=== PATIENT | male | born 1980 | race Caucasian/White ===

== ENCOUNTER 2020-06-22 08:54 | Outpatient (CLI) | payer OTHER, SELFPAY ==
[2020-06-22 09:17] LABS: Basophils Percent Auto 0.3 % (0.2-1.2); Eosinophils Absolute Auto 0.2 K/mm3 (0-0.3); Eosinophils Percent Auto 2.5 % (0-4.4); Hematocrit 48.2 % (42.0-52.0); Hemoglobin 15.9 g/dL (14.0-18.0); Immature Granulocyte Absolute 0.03 K/mm3 (0.00-0.031); Immature Granulocyte Percent A 0.3 % (0-0.5); Lymphocytes Absolute Auto 2.74 K/mm3 (0.9-3.2); Lymphocytes Percent Auto 29.4 % (18.3-44.2); Mean Corpuscular Hemoglobin 29.6 pg (26-34); Mean Corpuscular Volume 89.6 fl (80-100); Mean Platelet Volume 8.8 fl (7.4-10.4); Monocytes Absolute Auto 1.2 K/mm3 (0.1-0.6); Monocytes Percent Auto 12.6 % (2.6-8.5); Neutrophils Absolute Auto 5.1 K/mm3 (1.3-6.7); Neutrophils Percent Auto 54.9 % (45.5-73.1); Platelet Count Result 231 k/mm3 (150-375); Red Blood Count 5.38 M/mm3 (4.6-6.20); Red Cell Distribution Width 12.8 % (11.5-14.5); White Blood Count 9.3 K/mm3 (4.5-10.0)
[2020-06-22 09:19] LABS: Appearance Urine Clear (Clear); Bilirubin Urine Negative (Negative); Color Urine Yellow (Yellow); Glucose Urine UA Negative (Negative); Ketones Urine Negative (Negative); Leukocyte Esterase Ur Negative LEU/UL (Negative); Nitrate Urine Negative (Negative); Protein Urine Negative (Negative); Specific Grav Ur 1.025 (1.001-1.035); Urobilinogen Urine 0.2 mg/dL (<2.0); pH Urine 6.5 (5.0-9.0)
[2020-06-22 09:30] LABS: Alanine Aminotransferase 44 U/L (4-50); Albumin Level 3.9 g/dL (3.5-5.1); Alkaline Phosphatase 76 U/L (38-126); Anion Gap 11.4 mmol/L (7-16); Aspartate Amino Transferase 28 U/L (17-59); Bilirubin,Total 0.4 mg/dL (0.2-1.3); Blood Urea Nitrogen 16 mg/dL (9-20); Calcium 8.8 mg/dL (8.4-10.2); Carbon Dioxide 26 mmol/L (22-30); Chloride 107 mmol/L (98-107); Cholesterol 146 mg/dL (0-200); Estimated Glomerular Filt Rate > 60; Glucose 98 mg/dL (75-110); HDL Direct 30 mg/dL; Potassium 4.4 mmol/L (3.4-5.0); Sodium 140 mmol/L (137-145); Triglycerides 153 mg/dL (<150); Uric Acid 7.6 mg/dL (3.5-8.5)
[2020-06-22 09:32] LABS: Hemoglobin A1C 5.6 % (<5.7)
[2020-06-22 09:33] LABS: Mucus Urine Rare /lpf; RBC Urine 0-2 /hpf (0-2); WBC Urine 0-3 /hpf
[2020-06-22 09:43] LABS: Add Urine Microscopic? YES; Blood Urine Trace-Intact (Negative)
[2020-06-22 09:44] LABS: LDL Cholesterol Direct 81 mg/dL
[2020-06-22 11:31] LABS: Hepatitis C Virus Antibody Negative (Negative)
== END 2020-06-22 08:55 | disposition home or self-care (01) ==
LOC: ANHLAB 08:57
PROVIDERS: PCP Nurse Practitioner Family; Visit Provider Registered Nurse
DX: Z11.59 Encounter for screening for other viral diseases (principal)
CPT/HCPCS: 36415; 80053; 80061; 81001; 83036; 84443; 84550; 85025; 86803

== ENCOUNTER 2020-06-27 08:51 | Emergency (ER) | payer OTHER, SELFPAY ==
--- NOTE | 2020-06-27 09:03 | ED.GENADULT ---
HPI - General Adult General Chief complaint: Extremity Injury, Upper Stated complaint: left shoulder pain Time Seen by Provider: 06/27/20 09:05 Source: patient Mode of arrival: ambulatory Limitations: no limitations History of Present Illness HPI narrative: 40-year-old male patient presents to the [facility] with complaints of right shoulder pain for the past 3 days. Patient denies any specific injury to the shoulder that he can remember. 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 Patient states he noticed on Wednesday that after work when he went to go relax started having some pain to the right shoulder area that radiates to his neck. Patient states he has been trying to take [id number] ibuprofen for his symptoms. Denies any numbness or tingling down the arm. Patient states he did start using a heating pad yesterday. Related Data Home Medications Medication Instructions Recorded Confirmed furosemide [Lasix] 40 mg PO DAILY 06/27/20 06/27/20 Allergies Allergy/AdvReac Type Severity Reaction Status Date / Time No Known Allergies Allergy Verified 06/27/20 09:14 Review of Systems Review of Systems: Narrative: CONSTITUTIONAL: Denies fever, chills, or sweats. EYES: Denies visual changes, redness, or discharge. ENT: Denies rhinorrhea, congestion, sore throat, or otalgia. CARDIOVASCULAR: Denies chest pain, palpitations, or edema. RESPIRATORY: Denies cough or dyspnea. GASTROINTESTINAL: Denies abdominal pain, nausea, vomiting, or diarrhea. GENITOURINARY: Denies dysuria or hematuria. SKIN: Denies rash or itching. MUSCULOSKELETAL: Denies back pain, joint pain, or myalgia. Positive right shoulder pain x3 days NEUROLOGIC: Denies headache, numbness, or weakness. PSYCHIATRIC: Denies anxiety or depression. [facility] Past Medical History Medical History Obese Social History Social History Smoking status: Current every day smoker Gender identity (if verbalized by the patient): Male Comments At the time of my signature I agree with nursing past medical history, surgical, social, and family history. There is no relevant family history pertinent to the presenting complaint. Exam Narrative: Exam Narrative: GENERAL: Well-appearing, well-nourished, and in no acute distress. HEAD: Normocephalic, atraumatic. EYES: PERRLA and EOMI. ENT: Nares clear, no rhinorrhea or epistaxis. Mucous membranes moist. NECK: Supple, no lymphadenopathy. No surface trauma, no soft tissue or muscle tenderness or spasm noted. Trachea midline. No subq emphysema or crepitus. No brandi tenderness, step-offs or deformity to firm Palpation at posterior midline. FROM without limitation or pain, normal flexion, extension,Lateral bending, rotation, and axial load. Patient does complain of pain and pulling to the right scapular area with movement of the neck. CHEST: Clear to auscultation. No respiratory distress. HEART: Regular rate and rhythm. No murmur heard. Normal peripheral pulses. ABDOMEN: Soft, nontender, nondistended, normal active bowel sounds. EXTREMITIES: The R shoulder is without obvious asymmetry or deformity when compared to the L shoulder. No surface trauma, ecchymosis, crepitus. No bony deformity or prominence of the humeral head No erythema, warmth, swelling. no tenderness to palpation to clavicle, A to C joint, acromion, or humeral head. Patient does have an obvious spasm noted on palpation to the posterior shoulder right above the right scapula. No tenderness to palpation of the bicipital groove or soft tissues. No tenderness to palpation of the muscles of the sterncleidomastoid, pectorals, biceps/triceps, deltoid, trapezius, rhomboid, latissimus dorsi, rotator cuff. No pain or limitation with active or passive abduction/adduction, internal/external rotation, flexion/extension. Negative
[2020-06-27 09:04] VITALS: BP 125/80; PULSE 75; RESP 18; TEMP 36.4; O2SAT 99
== END 2020-06-27 09:21 | disposition home or self-care (01) ==
PROVIDERS: Emergency Provider Nurse Practitioner Family; PCP Registered Nurse
DX: M62.838 Other muscle spasm (principal)
CPT/HCPCS: 99213; G0463

== ENCOUNTER 2021-04-09 15:53 | Emergency (ER) | payer OTHER, SELFPAY ==
[2021-04-09 16:01] VITALS: BP 166/88; PULSE 81; RESP 20; TEMP 36.4; O2SAT 97
--- NOTE | 2021-04-09 16:11 | ED.URI ---
HPI - URI/Sore Throat General Chief Complaint: Upper Respiratory Infection Stated Complaint: cough Time Seen by Provider: 04/09/21 16:10 Source: patient, family and RN notes reviewed Mode of arrival: ambulatory Limitations: no limitations History of Present Illness HPI Narrative: 40-year-old male who presents to [facility] with complaint of cough, some sore throat and nasal drainage for the past 4 days. Patient states that cough is keeping him awake at night, denies any known fevers, chills or sweats. Patient states that he has noted some wheezing but denies any acute shortness of breath at rest or with exertion.He verbalizes that his throat is only noted to be sore when he is coughing, admits to some nasal congestion and drainage, denies any headache or sinus pressure or any ear pain. Patient does admit to some history of seasonal allergies and tobacco abuse of 1 pack daily of cigarettes for many years. Patient is able to speak in full sentences states cough is worse with exertion and when he lays down. MD elicited complaint: cough, sore throat and nasal congestion Pertinent past history: seasonal allergies and other (tobacco abuse) Onset (ago): day(s) (4 days since Wednesday) Consistency: progressively worsening Severity: moderate Description of mucous: clear Able to tolerate fluids by mouth: Yes Exacerbating factors: exertion, speaking and supine positioning Associated symptoms: rhinorrhea, nasal congestion and cough Treatments prior to arrival: other (cough drops, Robitussin cough syrup) Related Data Allergies Allergy/AdvReac Type Severity Reaction Status Date / Time No Known Allergies Allergy Verified 06/27/20 09:14 Review of Systems Review of Systems: Narrative: CONSTITUTIONAL: Denies fever, chills, or sweats. EYES: Denies visual changes, redness, or discharge. ENT: positive rhinorrhea, congestion, sore throat only with cough, no otalgia. CARDIOVASCULAR: Denies chest pain, palpitations, or edema. RESPIRATORY: Positive for cough and some feelings of wheezing denies acute episodes of dyspnea. GASTROINTESTINAL: Denies abdominal pain, nausea, vomiting, or diarrhea. GENITOURINARY: Denies dysuria or hematuria. SKIN: Denies rash or itching. MUSCULOSKELETAL: Denies back pain, joint pain, or myalgia. NEUROLOGIC: Denies headache, numbness, or weakness. PSYCHIATRIC: Denies anxiety or depression. All systems reviewed & are unremarkable except as noted in HPI and below PMFSH Past Medical History Medical History (Updated 04/12/21 @ 09:47 by Dianna Grijalva NP) Back pain Fracture of left ankle Obese Seasonal allergies Strep pharyngitis Tobacco abuse Surgical History Surgical History (Updated 04/12/21 @ 09:46 by Dianna Grijalva NP) No pertinent past surgical history Family History Family History (Updated 04/12/21 @ 09:28 by Dianna Grijalva NP) Other No pertinent family history in first degree relatives Social History Social History (Updated 04/12/21 @ 09:20 by Dianna Grijalva NP) Smoking packs per day: 1 Smoking cigarettes per day: 20.0 Smoking status: Current every day smoker Alcohol intake: unknown Substance use: never Living arrangements: with family Gender identity (if verbalized by the patient): Male Comments At time of signature, agree with nursing past medical, surgical, social and family history. There is no relevant family history pertinent to the presenting complaint Exam Narrative: Exam Narrative: GENERAL: Well-appearing, well-nourished, and in no acute distress. HEAD: Normocephalic, atraumatic. EYES: PERRLA and EOM ENT: Nares mildly red with clear rhinorrhea no epistaxis. Mucous membranes moist.TM's normal with good light reflex, throat pink with no lesions or exudates, tonsils not enlarged, some post nasal drainage in back of throat. NECK: Supple. no lymphadenopathy CHEST: Coarse breath sounds on auscultation. No respiratory distress.Acute harsh cough occasional states productive
== END 2021-04-09 16:43 | disposition home or self-care (01) ==
PROVIDERS: Emergency Provider Registered Nurse; PCP Registered Nurse
DX: J06.9 Acute upper respiratory infection, unspecified (principal); F17.210 Nicotine dependence, cigarettes, uncomplicated
CPT/HCPCS: 99213; G0463

== ENCOUNTER 2021-07-09 14:15 | Emergency (ER) | payer OTHER, SELFPAY ==
[2021-07-09 14:28] VITALS: BP 135/89; PULSE 76; RESP 16; TEMP 36.3; O2SAT 97
--- NOTE | 2021-07-09 15:03 | ED.NAVMDI ---
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 Patient states he has a couple day history of vomiting x2 today associated with diarrhea x8-10/day. Symptoms are mild unrelieved with Pepto-Bismol and preceded by nasal congestion and rare cough. Last diarrhea was earlier today, and he last vomited yesterday. No fever, blood, bile, travel; symptoms are mild, worse with eating and he requests days off. Related Data Home Medications Medication Instructions Recorded Confirmed hydrochlorothiazide 12.5 mg PO DAILY 07/09/21 07/09/21 Allergies Allergy/AdvReac Type Severity Reaction Status Date / Time No Known Allergies Allergy Verified 07/09/21 14:37 Review of Systems Review of Systems: General/Constitutional: No weight loss,fever Eyes: N0: Redness,discharge Ears/Nose/Throat: No: Epistaxis,ear discharge Respiratory: Denies: Hemoptysis Gastrointestinal: No Vomiting, Bleeding-rectal Skin: No Lumps, eruption Neurologic: No Focal Weakness,Sz Hematologic: Denies: Petechiae/Purpura Psychiatric: No: Suicida ideationl All Other Systems: Reviewed and Negative [facility] Past Medical History Medical History (Updated 07/09/21 @ 15:36 by James Smith MD) Back pain Fracture of left ankle Obese Seasonal allergies Strep pharyngitis Tobacco abuse Surgical History Surgical History (Updated 04/12/21 @ 09:46 by Dianna Grijalva NP) No pertinent past surgical history Family History Family History (Updated 04/12/21 @ 09:28 by Dianna Grijalva NP) Other No pertinent family history in first degree relatives Social History Social History (Updated 04/12/21 @ 09:20 by Dianna Grijalva NP) Smoking packs per day: 1 Smoking cigarettes per day: 20.0 Smoking status: Current every day smoker Alcohol intake: unknown Substance use: never Gender identity (if verbalized by the patient): Male Comments At time of signature, agree with nursing past medical, surgical, social and family history. There is no relevant family history pertinent to the presenting complaint Exam Narrative: General Appearance: Well appearing, No distress EYE: PERRLA, Conjunctiva clear Ears: External ear normal Nose: Normal nose Mouth/Throat: Normal appearing, Normal lips Neck: Supple Respiratory: Airway patent, No respiratory distress Cardiovascular: RRR Abdomen: Soft, Non-tender, No massess, No organomegaly (no rebound/ surgical signs), Hyperactive bowel sounds Musculoskeletal: Full ROM Skin: Warm, Dry, trace dependent edema Neurological: A&O x3, CN II-X intact Psychiatric: Normal mood, Normal affect Course Vital Signs Vital signs: Vital Signs Temperature 97.4 F L 07/09/21 14:28 Pulse Rate 76 07/09/21 14:28 Respiratory Rate 16 07/09/21 14:28 Blood Pressure 135/89 07/09/21 14:28 Pulse Oximetry 97 07/09/21 14:28 Temperature 97.4 F L 07/09/21 14:28 Pulse Rate 76 07/09/21 14:28 Respiratory Rate 16 07/09/21 14:28 Blood Pressure 135/89 07/09/21 14:28 Pulse Oximetry 97 07/09/21 14:28 MDM - Nausea/Vomiting/Diarrhea Lab Data Labs: Lab Results 07/09/21 Range/Units Unknown POC SARS CoV-2 Ag Positive (Negative) Discharge Plan Discharge Clinical Impression: Dependent edema Diarrhea Qualifiers: Diarrhea type: unspecified type Qualified Code(s): R19.7 - Diarrhea, unspecified Patient Disposition: Home, Self-Care Condition: Stable Instructions: Gastroenteritis (ED) Prescriptions: New diphenoxylate-atropine [Lomotil] 2.5-0.025 mg tablet 1 tablet PO DAILY PRN (Reason: diarrhea) Qty: 5 RF: 0 No Action hydrochlorothiazide 12.5 mg Capsule
== END 2021-07-09 15:18 | disposition home or self-care (01) ==
PROVIDERS: Emergency Provider Emergency Medicine; PCP Registered Nurse
DX: R60.9 Edema, unspecified (principal); R19.7 Diarrhea, unspecified; Z20.822 Contact with and (suspected) exposure to COVID-19; F17.210 Nicotine dependence, cigarettes, uncomplicated; E66.9 Obesity, unspecified
CPT/HCPCS: 87426; 99213; C9803; G0463

== ENCOUNTER 2021-11-25 10:21 | Emergency (ER) | payer OTHER, SELFPAY ==
--- NOTE | ~2021-11-25 | XR_ITS ---
EXAMINATION: XR shoulder RT min 2V DATE: 11/25/2021 11:12 INDICATION: Right shoulder pain post fall TECHNIQUE: AP internally and externally rotated, AP oblique externally rotated and axillary views of the right shoulder were obtained. COMPARISON: None FINDINGS: Normal alignment at the right shoulder. No fracture. Glenohumeral and acromioclavicular joint spaces are suboptimally profiled but appear relatively preserved. Soft tissues are unremarkable. IMPRESSION: No acute osseous abnormality to right shoulder. Reviewed, dictated and finalized at location B. [employer]
[2021-11-25 10:31] VITALS: BP 138/76; PULSE 84; RESP 18; TEMP 36.4; O2SAT 98
--- NOTE | 2021-11-25 10:46 | ED.GENADULT ---
HPI - General Adult General Chief complaint: Extremity Problem,Nontraumatic Stated complaint: Shoulder Pain Time Seen by Provider: 11/25/21 10:46 Source: patient, RN notes reviewed and old records reviewed Mode of arrival: ambulatory Limitations: no limitations History of Present Illness HPI narrative: 41-year-old male who presents to [facility] with complaints of pain to his anterior right shoulder. Patient states that he fell on outstretched right arm on and then starting having pain to his right anterior shoulder the next day. Patient has pain with movement to his right shoulder and some pain in his upper arm. Patient has strong pulses to his right arm denies any tingling or numbness, strong equal hand dramatic director. Patient does have full range of motion of the right shoulder but with discomfort and stated decrease in strength. Related Data Allergies Allergy/AdvReac Type Severity Reaction Status Date / Time No Known Allergies Allergy Verified 11/25/21 10:46 Review of Systems Review of Systems: CONSTITUTIONAL: Denies fever, chills, or sweats. EYES: Denies visual changes, redness, or discharge. ENT: Denies rhinorrhea, congestion, sore throat, or otalgia. CARDIOVASCULAR: Denies chest pain, palpitations, or edema. RESPIRATORY: Denies cough or dyspnea. GASTROINTESTINAL: Denies abdominal pain, nausea, vomiting, or diarrhea. GENITOURINARY: Denies dysuria or hematuria. SKIN: Denies rash or itching. MUSCULOSKELETAL: Denies back pain,positive for right shoulder joint pain, or myalgia. NEUROLOGIC: Denies headache, numbness, or weakness. PSYCHIATRIC: Denies anxiety or depression. All systems reviewed & are unremarkable except as noted in HPI and below PMFSH Past Medical History Medical History Back pain Fracture of left ankle Obese Seasonal allergies Strep pharyngitis Tobacco abuse Surgical History Surgical History No pertinent past surgical history Family History Family History (Updated 11/25/21 @ 11:28 by Dianna Grijalva NP) Father Diabetes mellitus Hypertension Lung cancer Arthritis Mother Hypertension Arthritis Sibling Hypertension Arthritis Other No pertinent family history in first degree relatives Social History Social History Smoking packs per day: 1 Smoking cigarettes per day: 20.0 Smoking status: Current every day smoker Alcohol intake: unknown Substance use: never Gender identity (if verbalized by the patient): Male Comments At time of signature, agree with nursing past medical, surgical, social and family history. There is no relevant family history pertinent to the presenting complaint Exam Narrative: GENERAL: Well-appearing, well-nourished,obese and in no acute distress. HEAD: Normocephalic, atraumatic. EYES: PERRLA and EOMI. ENT: Nares clear, no rhinorrhea or epistaxis. Mucous membranes moist.TMs normal throat pink with no lesions or exudates, no tonsil enlargement NECK: Supple. no lymphadenopathy CHEST: Clear to auscultation. No respiratory distress.SAO2 98% on room air HEART: Regular rate and rhythm. No murmur heard. Normal peripheral pulses. ABDOMEN: Soft, nontender, nondistended, normal active bowel sounds. EXTREMITIES: Normal range of motion. No edema. Pain to right shoulder with movement to anterior aspect to radiates to right upper arm, has good strong hand dramatic director bilaterally, strong pulses to right arm denies any tingling or numbness to right arm or hand SKIN: Warm, dry, no rash. NEURO: No focal deficits. Alert and oriented x3. Course Course Level of Care: Express Care Visit Vital Signs Vital signs: Vital Signs Temperature 36.4 C L 11/25/21 10:31 Pulse Rate 84 11/25/21 10:31 Respiratory Rate 18 11/25/21 10:31 Blood Pressure 138/76 11/25/21 10:31 Pulse Oximetry 98
== END 2021-11-25 11:51 | disposition home or self-care (01) ==
PROVIDERS: Emergency Provider Registered Nurse; PCP Registered Nurse
DX: S46.911A Strain of unspecified muscle, fascia and tendon at shoulder and upper arm level, right arm, initial encounter (principal); W19.XXXA Unspecified fall, initial encounter; E66.9 Obesity, unspecified; Z68.42 Body mass index [BMI] 45.0-49.9, adult; F17.210 Nicotine dependence, cigarettes, uncomplicated
CPT/HCPCS: 73030; 99213; G0463

== ENCOUNTER 2022-05-27 08:18 | Emergency (ER) | payer OTHER, SELFPAY ==
[2022-05-27 08:56] VITALS: BP 150/89; PULSE 65; RESP 16; TEMP 36.5; O2SAT 98
--- NOTE | 2022-05-27 09:12 | ED.BACK ---
HPI - Back Pain/Injury General Chief Complaint: Back Pain/Injury Stated Complaint: lower back pain Time Seen by Provider: 05/27/22 09:12 Source: patient, RN notes reviewed and old records reviewed Mode of arrival: ambulatory Limitations: no limitations History of Present Illness HPI Narrative: 42-year-old male who presents to [facility] with complaints of lower back pain non radiating to legs which started yesterday morning and has progressively increased in intensity since then with no known injury. Patient reports that he has no numbness or tingling in his legs or feet, reports no difficulty passing his urine or stool and has no saddle paraesthesia. Patient reports that he has had regular x-rays of his back but has never had any CT or MRI evaluation, has never had any epidural steroid injections. MD elicited complaint: back pain Pertinent past history: prior back pain Similar Symptoms Previously: Yes Radiation: none Treatments prior to arrival: NSAIDS Work related injury: No Related Data Allergies Allergy/AdvReac Type Severity Reaction Status Date / Time No Known Allergies Allergy Verified 05/27/22 09:05 Review of Systems Review of Systems: CONSTITUTIONAL: Denies fever, chills, or sweats. EYES: Denies visual changes, redness, or discharge. ENT: Denies rhinorrhea, congestion, sore throat, or otalgia. CARDIOVASCULAR: Denies chest pain, palpitations, or edema. RESPIRATORY: Denies cough or dyspnea. GASTROINTESTINAL: Denies abdominal pain, nausea, vomiting, or diarrhea. GENITOURINARY: Denies dysuria or hematuria. SKIN: Denies rash or itching. MUSCULOSKELETAL: Positive for lower back pain, joint pain, or myalgia. NEUROLOGIC: Denies headache, numbness, or weakness. PSYCHIATRIC: Denies anxiety or depression. [facility] Past Medical History Medical History Back pain Fracture of left ankle Obese Seasonal allergies Strep pharyngitis Tobacco abuse Surgical History Surgical History No pertinent past surgical history Family History Family History Father Diabetes mellitus Hypertension Lung cancer Arthritis Mother Hypertension Arthritis Sibling Hypertension Arthritis Other No pertinent family history in first degree relatives Social History Social History Smoking packs per day: 1 Smoking cigarettes per day: 20.0 Smoking status: Current every day smoker Alcohol intake: unknown Substance use: never Gender identity (if verbalized by the patient): Male Comments At time of signature, agree with nursing past medical, surgical, social and family history. There is no relevant family history pertinent to the presenting complaint Exam Narrative: GENERAL: Well-appearing, well-nourished, morbidly obese and in no acute distress. HEAD: Normocephalic, atraumatic. EYES: PERRLA and EOMI. ENT: Nares clear, no rhinorrhea or epistaxis. Mucous membranes moist.TM's normal with good light reflex, throat pink with no lesions or exudates or tonsil swelling. NECK: Supple.no lymphadenopathy CHEST: Decreased breath sounds on auscultation. No respiratory distress.SAO2 98% on room air HEART: Regular rate and rhythm. No murmur heard. Normal peripheral pulses. ABDOMEN: Soft, nontender, nondistended, normal active bowel sounds. EXTREMITIES: Normal range of motion. Trace pedal edema noted. Patient has lower lumbar back pain which is nonradiating to buttocks or legs, denies any tingling or numbness in lower extremities.pain is aggravated by forward and backward flexion and aggravated with lifting, no saddle paraesthesia, no acute pain on palpation of SI joints. SKIN: Warm, dry, no rash. NEURO: No focal deficits. Alert and oriented x3. Course Course Level of Care: Express Care Visit Vital Signs Vital signs:
== END 2022-05-27 09:40 | disposition home or self-care (01) ==
PROVIDERS: Emergency Provider Registered Nurse; PCP Registered Nurse
DX: M54.50 Low back pain, unspecified (principal); F17.210 Nicotine dependence, cigarettes, uncomplicated
CPT/HCPCS: 99213; G0463

== ENCOUNTER 2022-09-16 08:46 | Emergency (ER) | payer OTHER, SELFPAY ==
[2022-09-16 08:58] VITALS: BP 130/88; PULSE 69; RESP 16; TEMP 36.9; O2SAT 98
--- NOTE | 2022-09-16 09:18 | ED.LOWEXIN ---
HPI - Extremity Injury (Lower) General Chief Complaint: Extremity Problem,Nontraumatic Stated Complaint: Right Shoulder Pain Time Seen by Provider: 09/16/22 09:05 Source: patient Mode of arrival: ambulatory Limitations: no limitations History of Present Illness HPI Narrative: Mr. Chavez is a 42-year-old male patient presenting to the clinic today with complaint right shoulder pain that is been ongoing for couple weeks. He reports he has seen his PCP and was given prescription for naproxen but states that this is not helping. He reports the pain is worse when he is raising his arm above his head or lifting. He denies any known injury. 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 Patient denies any fever, chills, rash, headache, visual changes, dizziness, cough, runny nose, sore throat, shortness of breath, chest pain, palpitations, nausea, vomiting, diarrhea, constipation, abdominal pain, or any urinary issues. [facility] Past Medical History Medical History Back pain Fracture of left ankle Obese Seasonal allergies Strep pharyngitis Tobacco abuse Surgical History Surgical History No pertinent past surgical history Family History Family History Father Diabetes mellitus Hypertension Lung cancer Arthritis Mother Hypertension Arthritis Sibling Hypertension Arthritis Other No pertinent family history in first degree relatives Social History Social History Smoking packs per day: 1 Smoking cigarettes per day: 20.0 Smoking status: Current every day smoker Alcohol intake: unknown Substance use: never Gender identity (if verbalized by the patient): Male Comments At the time of my signature, I reviewed and agree with the nursing past medical, surgical, social, and family history. There is no relevant family history pertinent to the patient complaint. Exam Narrative: General: Well-developed, well nourished, in no apparent distress Head: Normocephalic, atraumatic. Cardio: Regular rate and rhythm, s1 and s2 normal, no murmur appreciated. Resp: Clear to auscultation bilaterally, no rhonchi, rales, wheezing or rubs. Musculoskeletal: No deformity, tender to palpation over the lateral shoulder /proximal humerus, pain with full can/ empty can testing however there is no laxity in the tendon, pain with raising the arm above head, positive Ortiz,grossly normal range of motion, muscle strength strong and equal, peripheral pulse strong, no edema, no cyanosis, normal gait and station Course Course Emergency Course: Portions of this record may have been created with voice recognition software. Level of Care: Express Care Visit Vital Signs Vital signs: Vital Signs Temperature 36.9 C 09/16/22 08:58 Pulse Rate 69 09/16/22 08:58 Respiratory Rate 16 09/16/22 08:58 Blood Pressure 130/88 09/16/22 08:58 Pulse Oximetry 98 09/16/22 08:58 Oxygen Delivery Room Air 09/16/22 08:58 Temperature 36.9 C 09/16/22 08:58 Pulse Rate 69 09/16/22 08:58 Respiratory Rate 16 09/16/22 08:58 Blood Pressure 130/88 09/16/22 08:58 Pulse Oximetry 98 09/16/22 08:58 Oxygen Delivery Room Air 09/16/22 08:58 Vital signs reviewed MDM - Extremity Injury (Lower) MDM Narrative Medical decision making narrative: At the time of visit patient is resting comfortably on the exam table.
== END 2022-09-16 09:23 | disposition home or self-care (01) ==
PROVIDERS: Emergency Provider Nurse Practitioner Family; PCP Registered Nurse
DX: M77.8 Other enthesopathies, not elsewhere classified (principal); F17.210 Nicotine dependence, cigarettes, uncomplicated
CPT/HCPCS: 99213; G0463

== ENCOUNTER 2022-12-26 09:15 | Emergency (ER) | payer OTHER, SELFPAY ==
[2022-12-26 09:38] VITALS: BP 135/91; PULSE 80; RESP 22; O2SAT 99
--- NOTE | 2022-12-26 09:38 | ED.LOWEXIN ---
HPI - Extremity Injury (Lower) General Chief Complaint: Extremity Problem,Nontraumatic Stated Complaint: Right Ankle Pain Time Seen by Provider: 12/26/22 09:46 Source: patient Mode of arrival: ambulatory Limitations: no limitations History of Present Illness HPI Narrative: 42 y/o male with hx HTN presented for c/o right lower leg swelling and redness worsening over the past 2 days. Reports tenderness to the red areas. Also with dried blister to the back of the lower leg. States he was treated for cellulitis at outside ER on 12/07/22. Reports moderate improvement in appearance of the redness and swelling until these symptoms reappeared. Denies n/v/d/f/c. Denies calf pain, numbness, tingling or weakness of the extremity. Related Data Home Medications Medication Instructions Recorded Confirmed hydrochlorothiazide 25 mg tablet 25 mg PO DAILY 09/16/22 12/26/22 Allergies Allergy/AdvReac Type Severity Reaction Status Date / Time No Known Allergies Allergy Verified 12/26/22 09:25 Review of Systems Review of Systems: CONSTITUTIONAL: Denies body aches, fever, chills EYES: Denies visual changes ENT: Denies rhinorrhea, congestion CARDIOVASCULAR: Denies chest pain, palpitations, or edema. RESPIRATORY: Denies cough or dyspnea. GASTROINTESTINAL: Denies abdominal pain, nausea, vomiting, or diarrhea. SKIN: per HPI MUSCULOSKELETAL: Denies back pain, joint pain, or myalgia. NEUROLOGIC: Denies headache, numbness, tingling, or weakness. All systems reviewed & are unremarkable except as noted in HPI and below PMFSH Past Medical History Medical History Back pain Fracture of left ankle Hypertension Obese Seasonal allergies Strep pharyngitis Tobacco abuse Surgical History Surgical History No pertinent past surgical history Family History Family History Father Diabetes mellitus Hypertension Lung cancer Arthritis Mother Hypertension Arthritis Sibling Hypertension Arthritis Other No pertinent family history in first degree relatives Social History Social History Smoking packs per day: 1 Smoking cigarettes per day: 20.0 Smoking status: Current every day smoker Alcohol intake: unknown Substance use: never Living arrangements: with family Gender identity (if verbalized by the patient): Male Comments At time of signature, I have reviewed and agree with nursing past medical, surgical, social and family history unless otherwise noted. Please see nursing chart for further information. There is no relevant family history pertinent to the presenting complaint Exam Narrative: GENERAL: Well-appearing, obese CHEST: Speaks in full sentences. No respiratory distress. HEART: Regular rate and rhythm. Normal and equal peripheral pulses. EXTREMITIES: Right lower leg with 4+ edema, and large amount of tender erythema to approx 70% lower leg, not circumferential, appearance c/w cellulitis; right posterior lower leg with approx 2cm diameter dried scabbed lesion without active drainage; RLE has normal strength and sensation, normal range of motion. pulse weak palpable and equal bilaterally, skin warm, dry, pink. Capillary refill less than 3 seconds. No calf pain illicited with dorsiflexion. SKIN: Warm, dry, no rash. NEURO: Alert and oriented x3. PSYCH: Normal mood and affect Course Course Emergency Course: Patient is aware of diagnosis, understands and agrees to treatment plan. Anticipatory guidance given. Portions of this record may have been created with voice recognition software Level of Care: Express Care Visit Vital Signs Vital signs: Vital Signs Pulse Rate 80 12/26/22 09:38 Respiratory Rate 22 H 12/26/22 09:38 Blood Pressure 135/91 H 12/26/22 09:38 Pulse
== END 2022-12-26 10:05 | disposition short-term general hospital (02) ==
PROVIDERS: Emergency Provider Nurse Practitioner Family
DX: L03.115 Cellulitis of right lower limb (principal); F17.210 Nicotine dependence, cigarettes, uncomplicated; I10 Essential (primary) hypertension; E66.9 Obesity, unspecified; Z68.43 Body mass index [BMI] 50.0-59.9, adult
CPT/HCPCS: 99212; G0463

== ENCOUNTER 2023-01-13 11:37 | Emergency (ER) | payer OTHER, SELFPAY ==
[2023-01-13 11:52] VITALS: BP 147/84; PULSE 92; RESP 20; TEMP 36.6; O2SAT 98
--- NOTE | 2023-01-13 12:22 | ED.URI ---
HPI - URI/Sore Throat General Chief Complaint: Upper Respiratory Infection Stated Complaint: URI Time Seen by Provider: 01/13/23 12:22 Source: patient and RN notes reviewed Mode of arrival: ambulatory Limitations: no limitations History of Present Illness HPI Narrative: 42-year-old male presented for complaint of cough and sinus congestion over the last few weeks. Endorses a headache and chest tightness with cough, cough is productive of clear sputum. Reports shortness of breath with exertion at times. He has history of asthma. Endorses history of hypertension and smokes 1 pack per day. He is not taking anything for symptoms. He endorses child also has similar symptoms. MD elicited complaint: cough Related Data Home Medications Medication Instructions Recorded Confirmed hydrochlorothiazide 25 mg tablet 25 mg PO DAILY 09/16/22 01/13/23 Allergies Allergy/AdvReac Type Severity Reaction Status Date / Time No Known Allergies Allergy Verified 01/13/23 12:06 Review of Systems Review of Systems: ROS per HPI PMFSH Past Medical History Medical History Back pain Fracture of left ankle Hypertension Obese Seasonal allergies Strep pharyngitis Tobacco abuse Surgical History Surgical History No pertinent past surgical history Family History Family History Father Diabetes mellitus Hypertension Lung cancer Arthritis Mother Hypertension Arthritis Sibling Hypertension Arthritis Other No pertinent family history in first degree relatives Social History Social History Smoking packs per day: 1 Smoking cigarettes per day: 20.0 Smoking status: Current every day smoker Alcohol intake: unknown Substance use: never Living arrangements: with family Gender identity (if verbalized by the patient): Male Exam Narrative: GENERAL: mildly Ill-appearing, nontoxic EYES: PERRLA, conjunctivae clear ENT: Mucous membranes moist. TM pearly mantilla with dull light reflex bilaterally; no tragal tenderness. Oropharynx without lesions or exudate, no drooling, no hoarseness, no trismus, uvula midline. CHEST: Clear to auscultation, breath sounds equal. No respiratory distress, speaks in full sentences. HEART: Regular rate and rhythm. No murmur heard. SKIN: Warm, dry, no rash. NEURO: Alert and oriented x3. PSYCH: Normal mood and affect Course Course Emergency Course: Patient is aware of diagnosis, understands and agrees to treatment plan. Anticipatory guidance given. Patient agrees to follow-up as directed and is aware of reasons to seek care at the emergency department. Portions of this record may have been created with voice recognition software Level of Care: Express Care Visit Vital Signs Vital signs: Vital Signs Temperature 97.9 F 01/13/23 11:52 Pulse Rate 92 01/13/23 11:52 Respiratory Rate 20 01/13/23 11:52 Blood Pressure 147/84 H 01/13/23 11:52 Pulse Oximetry 98 01/13/23 11:52 Oxygen Delivery Room Air 01/13/23 11:52 Temperature 97.9 F 01/13/23 11:52 Pulse Rate 92 01/13/23 11:52 Respiratory Rate 20 01/13/23 11:52 Blood Pressure 147/84 H 01/13/23 11:52 Pulse Oximetry 98 01/13/23 11:52 Oxygen Delivery Room Air 01/13/23 11:52 reviewed MDM - URI/Sore Throat MDM Narrative Medical decision making narrative: will send Rx Z-Bladimir as patient's son is positive for strep. Advised supportive measures and signs/symptoms to go to the ER. Pt is appropriate for outpt treatment and f/u. Differential Diagnosis Differential diagnosis: Likely upper respiratory infection, sinusitis, viral infection, bronchitis and pharyngitis Discharge Plan Discharge Clinical Impression: Upper respiratory infection Qualifiers: URI type: unspecifi
== END 2023-01-13 12:48 | disposition home or self-care (01) ==
PROVIDERS: Emergency Provider Nurse Practitioner Family
DX: J06.9 Acute upper respiratory infection, unspecified (principal); I10 Essential (primary) hypertension; E66.9 Obesity, unspecified; Z68.42 Body mass index [BMI] 45.0-49.9, adult; F17.210 Nicotine dependence, cigarettes, uncomplicated
CPT/HCPCS: 99213; G0463

== ENCOUNTER 2023-12-07 10:03 | Outpatient (CLI) | payer OTHER, SELFPAY ==
--- NOTE | ~2023-12-07 | US_ITS ---
Duplex Sonography of the right extremity: Indication: Edema Findings: Sagittal and transverse B-mode images as well as color-flow imaging were performed on the r ight femoral and popliteal veins. B-mode examination was done without and with compression in the tr ansverse plane. There is good visualization of the common femoral, proximal profunda femoral, superf icial femoral, greater saphenous, and popliteal veins. Normal flow was seen on color-flow imaging. N ormal compressibility was demonstrated. Visualized calf veins are also patent. Impression: No evidence of deep vein thrombosis involving the right lower carlene. Reviewed, dictated and finalized at location [facility] Impression: No evidence of deep vein thrombosis involving the right lower carlene.
== END 2023-12-07 10:04 | disposition home or self-care (01) ==
LOC: ANHIMG 10:04
PROVIDERS: Visit Provider Internal Medicine Cardiovascular Disease
DX: R60.0 Localized edema (principal)
CPT/HCPCS: 93971

== ENCOUNTER 2023-12-13 14:22 | Emergency (ER) | payer OTHER, SELFPAY ==
[2023-12-13 14:38] VITALS: BP 121/64; PULSE 78; RESP 18; TEMP 36.6; O2SAT 98
[2023-12-13 14:46] VITALS: PULSE 78; RESP 18; O2SAT 98
--- NOTE | 2023-12-13 15:19 | ED.URI ---
HPI - URI/Sore Throat General Chief Complaint: Upper Respiratory Infection Stated Complaint: Cough Time Seen by Provider: 12/13/23 15:13 Source: patient and RN notes reviewed Mode of arrival: ambulatory Limitations: no limitations History of Present Illness HPI Narrative: Patient presents today complaining of a 1.5-2 month history of cough that is occasionally productive with rhinorrhea. Denies fever, congestion, or any additional symptoms. He has tried [id number] medication without relief. Denies history of asthma or COPD. Smokes 1 pack per day. Related Data Home Medications Medication Instructions Recorded Confirmed hydrochlorothiazide 25 mg tablet 25 mg PO DAILY 09/16/22 12/13/23 Allergies Allergy/AdvReac Type Severity Reaction Status Date / Time No Known Allergies Allergy Verified 11/25/23 09:02 Review of Systems Review of Systems: CONSTITUTIONAL: Denies body aches, fever, chills, or sweats. EYES: Denies visual changes, redness, or discharge. ENT: Denies congestion, sore throat, or otalgia.+ rhinorrhea CARDIOVASCULAR: Denies chest pain, palpitations, or edema. RESPIRATORY: Denies dyspnea.+ cough GASTROINTESTINAL: Denies abdominal pain, nausea, vomiting, or diarrhea. GENITOURINARY: Denies dysuria or hematuria. SKIN: Denies rash, itching, or wounds. MUSCULOSKELETAL: Denies back pain, joint pain, or myalgia. NEUROLOGIC: Denies headache, numbness, tingling, or weakness. PSYCH: Denies depression or anxiety. [facility] Past Medical History Medical History Back pain Fracture of left ankle Hypertension Obese Seasonal allergies Strep pharyngitis Tobacco abuse Surgical History Surgical History No pertinent past surgical history Family History Family History Father Diabetes mellitus Hypertension Lung cancer Arthritis Mother Hypertension Arthritis Sibling Hypertension Arthritis Other No pertinent family history in first degree relatives Social History Social History Smoking packs per day: 1 Smoking cigarettes per day: 20.0 Smoking status: Current every day smoker Tobacco type: cigarettes Alcohol intake: current Substance use: never Living arrangements: with family Gender identity (if verbalized by the patient): Male Comments Reviewed Exam Narrative: GENERAL: Well-appearing, well-nourished, and in no acute distress. HEAD: Normocephalic, atraumatic. EYES: EOMI. No redness or drainage. Conjunctivae normal. ENT: Mucous membranes pink and moist. Nares clear. No rhinorrhea. TMs normal bilaterally. Throat normal. Uvula midline. NECK: Normal AROM. Supple. No lymphadenopathy. CHEST: No respiratory distress. Clear to auscultation. HEART: Regular rate and rhythm. No murmur appreciated. EXTREMITIES: Normal range of motion. No edema. SKIN: Warm, dry, no rash. Capillary refill normal. Normal skin turgor. NEURO: No focal deficits. Alert and oriented x3. Gait steady. PSYCH: Normal affect. No signs of depression or anxiety. Course Course Level of Care: Express Care Visit Vital Signs Vital signs: Vital Signs Temperature 97.8 F 12/13/23 14:38 Pulse Rate 78 12/13/23 14:38 Respiratory Rate 18 12/13/23 14:38 Blood Pressure 121/64 12/13/23 14:38 Pulse Oximetry 98 12/13/23 14:38 Oxygen Delivery Room Air 12/13/23 14:38 Temperature 97.8 F 12/13/23 14:38 Pulse Rate 78 12/13/23 14:46 Respiratory Rate 18 12/13/23 14:46 Blood Pressure 121/64 12/13/23 14:38 Pulse Oximetry 98 12/13/23 14:46 Oxygen Delivery Room Air 12/13/23 14:38 Reviewed MDM - URI/Sore Throat MDM Narrative Medical decision making narrative: Patient will be treated with Augmentin and prednisone for resp
== END 2023-12-13 15:28 | disposition home or self-care (01) ==
PROVIDERS: Emergency Provider Nurse Practitioner
DX: J06.9 Acute upper respiratory infection, unspecified (principal); F17.210 Nicotine dependence, cigarettes, uncomplicated; I10 Essential (primary) hypertension; E66.9 Obesity, unspecified; Z68.43 Body mass index [BMI] 50.0-59.9, adult
CPT/HCPCS: 99213; G0463

== ENCOUNTER 2024-01-11 17:51 | Emergency (ER) | payer OTHER, SELFPAY ==
--- NOTE | ~2024-01-11 | XR_ITS ---
EXAMINATION: XR chest 2V DATE: 01/11/2024 18:42 INDICATION: Cough and fever. TECHNIQUE: Frontal and lateral views of the chest were obtained on 3 radiographs. COMPARISON: Chest 2 views 03/06/2019 FINDINGS: There is no pneumonia, pleural effusion, or pneumothorax. The heart size is normal. IMPRESSION: 1. No acute cardiopulmonary disease. Reviewed, dictated and finalized at location [facility] [employer] [facility]
[2024-01-11 18:04] VITALS: BP 141/78; PULSE 90; RESP 16; TEMP 37.2; O2SAT 97
--- NOTE | 2024-01-11 18:25 | ED.URI ---
HPI - URI/Sore Throat General Chief Complaint: Upper Respiratory Infection Stated Complaint: headache,fever,cough Time Seen by Provider: 01/11/24 18:25 Source: patient, RN notes reviewed and old records reviewed Mode of arrival: ambulatory Limitations: no limitations History of Present Illness HPI Narrative: 43-year-old male presents to the [facility] with complaints of cough, headache, fevers that started , 5 days ago. Has tried [id number] products with no relief Patient reports that he quits smoking on Wednesday, started vaping. Patient was smoking approximately 2 packs of cigarettes a day Has a history of hypertension Onset (ago): day(s) (5) Treatments prior to arrival: cold medicine Related Data Home Medications Medication Instructions Recorded Confirmed hydrochlorothiazide 25 mg tablet 25 mg PO DAILY 09/16/22 01/11/24 varenicline 1 mg tablet 1 mg PO BID 01/11/24 01/11/24 Allergies Allergy/AdvReac Type Severity Reaction Status Date / Time No Known Allergies Allergy Verified 01/11/24 18:14 Review of Systems Review of Systems: All systems reviewed & are unremarkable except as noted in HPI and below Constitutional: Constitutional: Reports as per HPI, Reports fatigue and Reports fever(s) Eyes: Eyes: Reports no additional eye complaints ENT: Reports system reviewed and no additional complaints, except as documented Cardiovascular: Cardiovascular: Reports no additional cardiovascular complaints, Denies chest pain and Denies dyspnea Respiratory: Respiratory: Reports as per HPI, Denies chest congestion, Reports cough and Denies dyspnea Gastrointestinal: Gastrointestinal: Reports no additional gastrointestinal complaints, Denies abdominal pain, Denies nausea and Denies vomiting Musculoskeletal: Musculoskeletal: Reports no additional musculoskeletal complaints Integumentary/Breasts: Skin/Breast: Reports system reviewed and no additional complaints, except as docu Neurologic: Reports system reviewed and no additional complaints, except as documented Psychiatric: Psychiatric: Reports no additional psychiatric complaints Allergic/Immunologic: Allergic/Immunologic: Reports no additional allergic/immunologic complaints PMFSH Past Medical History Medical History Back pain Fracture of left ankle Hypertension Obese Seasonal allergies Strep pharyngitis Tobacco abuse Surgical History Surgical History No pertinent past surgical history Family History Family History Father Diabetes mellitus Hypertension Lung cancer Arthritis Mother Hypertension Arthritis Sibling Hypertension Arthritis Other No pertinent family history in first degree relatives Social History Social History Smoking packs per day: 1 Smoking cigarettes per day: 20.0 Smoking status: Current every day smoker Tobacco type: cigarettes Alcohol intake: current Substance use: never Living arrangements: with family Gender identity (if verbalized by the patient): Male Comments At the time of my signature, I reviewed and agree with the nursing past medical, surgical, social, and family history. There is no relevant family history pertinent to the patient complaint. Exam Const: General: cooperative, healthy appearing, comfortable, no acute distress, well developed, alert and well nourished Nutritional Appearance: well nourished and obese morbidly obese Orientation/consciousness: patient oriented x3 Limitations: no limitations HENMT: Head: normal to inspection Ears: hearing grossly normal bilaterally, external ears normal, TM's normal bilaterally, EAC's normal, mastoids normal and no periauricular adenopathy Face/Nose/Sinus: Normal external nose present, Normal nares present, Normal nasa
== END 2024-01-11 19:08 | disposition home or self-care (01) ==
PROVIDERS: Emergency Provider Nurse Practitioner
DX: J40 Bronchitis, not specified as acute or chronic (principal); Z20.822 Contact with and (suspected) exposure to COVID-19; F17.210 Nicotine dependence, cigarettes, uncomplicated; I10 Essential (primary) hypertension; E66.9 Obesity, unspecified; Z68.43 Body mass index [BMI] 50.0-59.9, adult
CPT/HCPCS: 71046; 87426; 87804; 99213; G0463

== ENCOUNTER 2024-05-08 22:48 | Emergency (ER) | payer OTHER, SELFPAY ==
[2024-05-08 22:51] VITALS: BP 178/98; PULSE 87; RESP 15; TEMP 36.6; O2SAT 98
== END 2024-05-09 00:50 | disposition left against medical advice (07) ==
LOC: ANHED 05-09 01:01
DX: R20.2 Paresthesia of skin (principal)
CPT/HCPCS: 99199

== ENCOUNTER 2024-08-10 15:14 | Emergency (ER) | payer OTHER, SELFPAY ==
[2024-08-10 15:23] VITALS: BP 137/83; PULSE 79; RESP 20; TEMP 37; O2SAT 96
[2024-08-10 15:25] VITALS: BP 137/83; PULSE 79; RESP 20; TEMP 37; O2SAT 96
--- NOTE | 2024-08-10 15:29 | ED.GENADULT ---
HPI - General Adult General Chief complaint: Nausea/Vomiting/Diarrhea Stated complaint: Abdominal Pain/Diarrhea Source: patient, RN notes reviewed and old records reviewed Mode of arrival: ambulatory Limitations: no limitations History of Present Illness HPI narrative: 44-year-old male presents to the [facility] with complaints of dull abdominal cramping and diarrhea that started at 3:00 a.m. this morning. No treatment prior to arrival Treatments prior to arrival: none Related Data Home Medications Medication Instructions Recorded Confirmed hydrochlorothiazide 25 mg tablet 25 mg PO DAILY 09/16/22 01/11/24 varenicline 1 mg tablet 1 mg PO BID 01/11/24 01/11/24 Allergies Allergy/AdvReac Type Severity Reaction Status Date / Time No Known Allergies Allergy Verified 08/10/24 15:24 Review of Systems Review of Systems: All systems reviewed & are unremarkable except as noted in HPI and below Constitutional: Constitutional: Reports no additional constitutional complaints Eyes: Eyes: Reports no additional eye complaints ENT: Reports system reviewed and no additional complaints, except as documented Cardiovascular: Cardiovascular: Reports no additional cardiovascular complaints, Denies chest pain and Denies dyspnea Respiratory: Respiratory: Reports no additional respiratory complaints, Denies chest congestion, Denies cough and Denies dyspnea Gastrointestinal: Gastrointestinal: Reports as per HPI, Denies abdominal pain, Reports diarrhea, Denies nausea and Denies vomiting Musculoskeletal: Musculoskeletal: Reports no additional musculoskeletal complaints Integumentary/Breasts: Skin/Breast: Reports system reviewed and no additional complaints, except as docu Neurologic: Reports system reviewed and no additional complaints, except as documented Psychiatric: Psychiatric: Reports no additional psychiatric complaints Allergic/Immunologic: Allergic/Immunologic: Reports no additional allergic/immunologic complaints [facility] Past Medical History Medical History Back pain Fracture of left ankle Hypertension Obese Seasonal allergies Strep pharyngitis Tobacco abuse Surgical History Surgical History No pertinent past surgical history Family History Family History Father Diabetes mellitus Hypertension Lung cancer Arthritis Mother Hypertension Arthritis Sibling Hypertension Arthritis Other No pertinent family history in first degree relatives Social History Social History Smoking packs per day: 1 Smoking cigarettes per day: 20.0 Smoking status: Current every day smoker Tobacco type: cigarettes Alcohol intake: current Substance use: never Living arrangements: with family Gender identity (if verbalized by the patient): Male Comments At the time of my signature, I reviewed and agree with the nursing past medical, surgical, social, and family history. There is no relevant family history pertinent to the patient complaint. Exam Const: General: cooperative, healthy appearing, comfortable, no acute distress, well developed, alert and well nourished Nutritional Appearance: well nourished and obese morbidly obese Orientation/consciousness: patient oriented x3 Limitations: no limitations HENMT: Head: normal to inspection Ears: hearing grossly normal bilaterally and external ears normal Face/Nose/Sinus: Normal external nose present, Normal nares present, Normal nasal mucous membranes and turbinates present, normal facial exam and face symmetric Face and sinus: normal facial exam and face symmetric Eyes: General: appearance normal, both eyes and all related structures Alignment and Position: alignment normal Periorbital: periorbital findings normal Neck: Neck: normal visual
[2024-08-10 15:58] LABS: EDCOVIDSCREEN Negative (Negative); EDINFLUASCREEN Negative (Negative); EDINFLUBSCREEN Negative (Negative)
== END 2024-08-10 16:00 | disposition home or self-care (01) ==
PROVIDERS: Emergency Provider Nurse Practitioner
DX: R10.9 Unspecified abdominal pain (principal); Z20.822 Contact with and (suspected) exposure to COVID-19; F17.210 Nicotine dependence, cigarettes, uncomplicated; I10 Essential (primary) hypertension; E66.9 Obesity, unspecified; Z68.43 Body mass index [BMI] 50.0-59.9, adult
CPT/HCPCS: 87426; 87804; 99212; G0463

== ENCOUNTER 2024-09-11 15:18 | Emergency (ER) | payer OTHER, SELFPAY ==
--- NOTE | 2024-09-11 15:25 | ED.BACK ---
HPI - Back Pain/Injury General Chief Complaint: Back Pain/Injury Stated Complaint: Lower Back Pain Time Seen by Provider: 09/11/24 16:22 Source: patient and RN notes reviewed Mode of arrival: ambulatory Limitations: no limitations History of Present Illness HPI Narrative: 44-year-old male presents with concern for low back pain. Reports that started around midnight last night. He denies any injury or trauma. He denies weakness in any extremity. He denies loss of bowel or bladder function, perianal anesthesia. He denies abdominal pain or fever. He took ibuprofen without relief. MD elicited complaint: back pain Related Data Home Medications Medication Instructions Recorded Confirmed hydrochlorothiazide 25 mg tablet 25 mg PO DAILY 09/16/22 09/11/24 varenicline 1 mg tablet 1 mg PO BID 01/11/24 09/11/24 Allergies Allergy/AdvReac Type Severity Reaction Status Date / Time No Known Allergies Allergy Verified 09/11/24 15:58 Review of Systems Review of Systems: CONSTITUTIONAL: Denies malaise, chills, sweats, or fever. CARDIOVASCULAR: Denies chest pain, palpitations, or edema. RESPIRATORY: Denies cough or dyspnea. GASTROINTESTINAL: Denies abdominal pain GENITOURINARY: Denies dysuria or hematuria. Denies loss of bowel or bladder function my perianal anesthesia SKIN: Denies rash or itching. MUSCULOSKELETAL: Reports low back pain NEUROLOGIC: Denies numbness, weakness, or headache. All systems reviewed & are unremarkable except as noted in HPI and below PMFSH Past Medical History Medical History Back pain Fracture of left ankle Hypertension Obese Seasonal allergies Strep pharyngitis Tobacco abuse Surgical History Surgical History No pertinent past surgical history Family History Family History Father Diabetes mellitus Hypertension Lung cancer Arthritis Mother Hypertension Arthritis Sibling Hypertension Arthritis Other No pertinent family history in first degree relatives Social History Social History Smoking packs per day: 1 Smoking cigarettes per day: 20.0 Smoking status: Current every day smoker Tobacco type: cigarettes Alcohol intake: current Substance use: never Living arrangements: with family Gender identity (if verbalized by the patient): Male Comments At time of signature, agree with nursing past medical, surgical, social and family history. There is no relevant family history pertinent to the presenting complaint Exam Narrative: GENERAL: Well-appearing, well-nourished, and in no acute distress. HEAD: Normocephalic, atraumatic. EYES: PERRLA and EOMI. NECK: Supple. No lymphadenopathy. CHEST: Clear to auscultation. No respiratory distress. HEART: Regular rate and rhythm. Distal pulses palpable and equal, cap refill <3 seconds ABDOMEN: Soft, nontender, nondistended, normal active bowel sounds, no palpable or pulsatile masses. No CVA tenderness MUSCULOSKELETAL: Normal range of motion and strength in all extremities; 5/5 strength with hip flexion and extension, dorsiflexion and extension, knee flexion and extension, plantar flexion and extension. Normal sensation in dermatomal distributions with sensitivity to light touch and pain. midline back tenderness to palpation. No paraspinal tenderness. Transfers from sitting to standing. SKIN: Warm, dry, no rash. No ecchymosis, erythema, open wounds to back. NEURO: No focal deficits. Alert and oriented x3. Reflexes intact. Normal gait. PSYCH: Normal mood and affect Course Course Emergency Course: Patient is aware of diagnosis, understands and agrees to treatment plan. Anticipatory guidance given. Patient agrees to follow-up as directed and is aware of reasons to seek care at the emergency department
[2024-09-11 15:38] VITALS: BP 158/91; PULSE 86; RESP 19; TEMP 37.1; O2SAT 97
== END 2024-09-11 16:52 | disposition home or self-care (01) ==
PROVIDERS: Emergency Provider Nurse Practitioner; PCP Registered Nurse
DX: M54.50 Low back pain, unspecified (principal); F17.210 Nicotine dependence, cigarettes, uncomplicated; I10 Essential (primary) hypertension; E66.9 Obesity, unspecified; Z68.43 Body mass index [BMI] 50.0-59.9, adult
CPT/HCPCS: 99213; G0463

== ENCOUNTER 2024-10-05 16:09 | Emergency (ER) | payer SELFPAY ==
[2024-10-05 16:28] VITALS: BP 146/91; PULSE 88; RESP 20; TEMP 36.8; O2SAT 97
[2024-10-05 16:39] LABS: EDCOVIDSCREEN Negative (Negative); EDINFLUASCREEN Negative (Negative); EDINFLUBSCREEN Negative (Negative)
--- NOTE | 2024-10-05 16:52 | ED_ITS ---
HPI - General Adult General Chief complaint: Upper Respiratory Infection Stated complaint: Diarrhea/Cough Time Seen by Provider: 10/05/24 16:52 Source: patient, RN notes reviewed and old records reviewed Mode of arrival: ambulatory Limitations: no limitations History of Present Illness HPI narrative: 44-year-old male presents to the [facility] with up approximately 1 week of diarrhea, abdominal cramping right before he has a bowel movement. Patient has a chronic history of episodes of diarrhea. Patient denies any chest pain, shortness of breath. Denies fevers Related Data Home Medications Medication Instructions Recorded Confirmed hydrochlorothiazide 25 mg tablet 25 mg PO DAILY 09/16/22 10/05/24 bupropion HCl 150 mg tablet,12 hr 150 mg PO BID 10/05/24 10/05/24 sustained-release Allergies Allergy/AdvReac Type Severity Reaction Status Date / Time No Known Allergies Allergy Verified 10/05/24 16:22 Review of Systems Review of Systems: All systems reviewed & are unremarkable except as noted in HPI and below Constitutional: Constitutional: Reports no additional constitutional complaints ENT: Reports system reviewed and no additional complaints, except as documented Cardiovascular: Cardiovascular: Reports no additional cardiovascular complaints, Denies chest pain and Denies dyspnea Respiratory: Respiratory: Reports no additional respiratory complaints, Denies chest congestion, Denies cough and Denies dyspnea Gastrointestinal: Gastrointestinal: Reports as per HPI, Reports abdominal pain (Cramping with bowel movements), Reports diarrhea, Denies nausea and Denies vom iting Musculoskeletal: Musculoskeletal: Reports no additional musculoskeletal complaints Integumentary/Breasts: Skin/Breast: Reports system reviewed and no additional complaints, except as docu PMF[facility] Past Medical History Medical History Back pain Fracture of left ankle Hypertension Obese Seasonal allergies Strep pharyngitis Tobacco abuse Surgical History Surgical History No pertinent past surgical history Family History Family History Father Diabetes mellitus Hypertension Lung cancer Arthritis Mother Hypertension Arthritis Sibling Hypertension Arthritis Other No pertinent family history in first degree relatives Social History Social History Smoking packs per day: 1 Smoking cigarettes per day: 20.0 Smoking status: Current every day smoker Tobacco type: cigarettes Alcohol intake: current Substance use: never Living arrangements: with family Gender identity (if verbalized by the patient): Male Comments At the time of my signature, I reviewed and agree with the nursing past medical, surgical, social, and family history. There is no relevant family history pertinent to the patient complaint. Exam Const: General: cooperative, healthy appearing, comfortable, no acute distress, well developed, alert and well nourished Nutritional Appearance: well nourished and obese Orientation/consciousness: patient oriented x3 Limitations: no limitations HENMT: Head: normal to inspection Ears: hearing grossly normal bilaterally, external ears normal, TM's normal bilaterally, EAC's normal, mastoids normal and no periauricular adenopathy Face/Nose/Sinus: Normal external nose present, normal facial exam and face symmetric Face and sinus: normal facial exam and face symmetric Mouth: Yes Normal oral and palatal mucosa present, Yes lip normal and Yes tongue normal Throat: posterior oropharynx normal, uvula midline and no uvular edema Eyes: General: appearance normal, both eyes and all related structures Alignment and Position: alignment normal Periorbital: periorbital findings normal Neck: Neck: normal visual inspection, full ROM, no lymphadenopathy and no meningeal signs Chest: Chest palpation & inspection: normal inspection of the chest Resp: Effort & Inspection: normal respiratory effort and able to speak in complete sentences Auscultation: clear to auscultation bilaterally, no crackl es, no rales, no rhonchi and no wheezes Cardio: Rate: regular rate GI: GI Palp: No abdominal tenderness and Yes Soft to palpation Auscultation: normal bowel sounds Skin: General skin exam: normal color and no rashes or lesions noted Lesions: no lesions Rashes: no rashes Wounds: no wounds Neuro: General: patient oriented x3, gait normal, tone normal, moves all extremities and no meningeal signs Cognition (Neuro): normal cognition S peech: normal speech Gait exam (Neuro): Normal gait present Extrem: General: normal to inspection, full ROM, capillary refill normal and normal gait Psych: Appearance: grossly normal and well kempt Mental Status: mental status grossly normal Speech and movement: Normal speech and movement present and Clear speech present Affect: normal affect Attitude: cooperative Course Course Level of Care: Express Care Visit Vital Signs Vital signs: Vital Signs Temperature 98.3 F 10/05/24 16:28 Pulse Rate 88 10/05/24 16:28 Respiratory Rate 20 10/05/24 16:28 Blood Pressure 146/91 H 10/05/24 16:28 Pulse Oximetry 97 10/05/24 16:28 Oxygen Delivery Room Air 10/05/24 16:28 Temperature 98.3 F 10/05/24 16:28 Pulse Rate 88 10/05/24 16:28 Respiratory Rate 20 10/05/24 16:28 Blood Pressure 146/91 H 10/05/24 16:28 Pulse Oximetry 97 10/05/24 16:28 Oxygen Delivery Room Air 10/05/24 16:28 Reviewed Medical Decision Making MDM Narrative Medical decision making narrative: Patient sitting comfortably in exam room. Nontoxic, vitals stable. Patient in no acute distress Patient presents for diarrhea, cramping abdominal. Has a history of same. Encouraged patient to follow-up with primary care provider and possibly see a GI doctor. Patient appropriate for outpatient treatment of gastritis, diarrhea with [id number] products and hydration. No acute findings noted on exam Discussion had with patient in regards to treatment and the importance of following up. Discharge instructions reviewed with patient, as well as provided in writing per nursing staff. The instructions also include specific and strict return/GO TO THE ER as well as f/u information. All questions have been answered, and the patient deny any further questions with discharge and discharge plan. Some parts of this dictation were generated by voice recognition software and may contain typographical and/or grammatical inaccuracies. Differential Diagnosis Differential Diagnosis: Gastroenteritis, acute diarrhea. Medical Records Medical records reviewed: Yes I reviewed the external patient's medical records. Vital Signs Vital Signs: Vital Signs Temperature 98.3 F 10/05/24 16:28 Pulse Rate 88 10/05/24 16:28 Respiratory Rate 20 10/05/24 16:28 Blood Pressure 146/91 H 10/05/24 16:28 Pulse Oximetry 97 10/05/24 16:28 Oxygen Delivery Room Air 10/05/24 16:28 Temperature 98.3 F 10/05/24 16:28 Pulse Rate 88 10/05/24 16:28 Respiratory Rate 20 10/05/24 16:28 Blood Pressure 146/91 H 10/05/24 16:28 Pulse Oximetry 97 10/05/24 16:28 Oxygen Delivery Room Air 10/05/24 16:28 Reviewed Lab Data Lab results reviewed: Yes I reviewed the patient's lab results. Labs: Lab Results 10/05/24 Range/Units 16:25 POC Influenza A Ag Negative (Negative) POC Influenza B Ag Negative (Negative) POC SARS CoV-2 Ag Negative (Negative) Reviewed Critical Care Time Critical Care Time Critical Care Time: No Discharge Plan Discharge Clinical Impression: Diarrhea Patient Disposition: Home, Self-Care Condition: Stable Instructions: Antibiotic Form, Acute Diarrhea (ED) Additional Instructions: Keep your diet very simple. Nothing fried, greasy, spicy or processed. Stay hydrated with plenty of water, Gatorade, Pedialyte, ice pops in Jell-O If your symptoms of diarrhea becomes severe you can take Imodium You must follow-up with your primary care provider this week. Both [facility] follow-up and have your blood pressure checked. Today your blood pressure was 146/91 For new or worsening symptoms go directly to the emergency room Patient Language: Micronesian Prescriptions: No Action hydrochlorothiazide 25 mg tablet 25 mg PO DAILY Patient Comments: 12/13/23 Pt has not filled for 5 months, states he last took over a month ago bupropion HCl 150 mg tablet sustained-release 12 hr 150 mg PO BID Follow-up/Referrals: Daniella,MARILEE Persaud [Primary Care Provider] - 1 Week ([facility] follow-up) Stand Alone Forms: Work/School Release IP Time of Disposition: 17:02
== END 2024-10-05 17:08 | disposition home or self-care (01) ==
PROVIDERS: Emergency Provider Nurse Practitioner; PCP Registered Nurse
DX: R19.7 Diarrhea, unspecified (principal); Z20.822 Contact with and (suspected) exposure to COVID-19; F17.210 Nicotine dependence, cigarettes, uncomplicated; I10 Essential (primary) hypertension; E66.9 Obesity, unspecified; Z68.44 Body mass index [BMI] 60.0-69.9, adult
CPT/HCPCS: 87426; 87804; 99212; G0463

== ENCOUNTER 2025-01-23 13:08 | Emergency (ER) | payer OTHER, SELFPAY ==
[2025-01-23 13:15] VITALS: BP 126/85; PULSE 92; RESP 20; TEMP 37.1; O2SAT 96
--- NOTE | 2025-01-23 13:31 | ED.GENADULT ---
HPI - General Adult General Chief complaint: Upper Respiratory Infection Stated complaint: diarrhea,cough,vomiting,fever Time Seen by Provider: 01/23/25 13:25 Source: patient, RN notes reviewed and old records reviewed Mode of arrival: ambulatory Limitations: no limitations History of Present Illness HPI narrative: 44-year-old male presents to the [facility] with 2 day history of 2 episodes of diarrhea, coughing, 1 episode of vomiting. Has felt feverish. Denies chest pain, abdominal pain. States right before he has diarrhea he gets intermittent cramps. Patient states that whenever he gets sick he tends to get diarrhea and nausea and vomiting. No treatment prior to arrival Onset (ago): day(s) (2) Treatments prior to arrival: none Related Data Home Medications ?Medication ?Instructions ?Recorded ?Confirmed ?Last Taken ?Type hydrochlorothiazide 25 mg tablet 25 mg PO DAILY 09/16/22 01/23/25 Unknown History bupropion HCl 150 mg tablet,12 hr 150 mg PO BID 10/05/24 01/23/25 Unknown History sustained-release tirzepatide 5 mg/0.5 mL 5 mg subcut WEEKLY 01/23/25 01/23/25 Unknown History subcutaneous pen injector (Mounjaro) Allergies Allergy/AdvReac Type Severity Reaction Status Date / Time No Known Allergies Allergy Verified 01/23/25 13:22 Review of Systems Review of Systems: All systems reviewed & are unremarkable except as noted in HPI and below Constitutional: Constitutional: Reports as per HPI ENT: Reports system reviewed and no additional complaints, except as documented Cardiovascular: Cardiovascular: Reports no additional cardiovascular complaints, Denies chest pain and Denies dyspnea Respiratory: Respiratory: Reports as per HPI, Reports no additional respiratory complaints, Denies chest congestion, Reports cough and Denies dyspnea Gastrointestinal: Gastrointestinal: Reports as per HPI Musculoskeletal: Musculoskeletal: Reports no additional musculoskeletal complaints Integumentary/Breasts: Skin/Breast: Reports system reviewed and no additional complaints, except as [facility]u [facility] Past Medical History Medical History Hypertension Tobacco abuse Seasonal allergies Fracture of left ankle Back pain Strep pharyngitis Obese Surgical History Surgical History No pertinent past surgical history Family History Family History Father Diabetes mellitus Hypertension Lung cancer Arthritis Mother Hypertension Arthritis Sibling Hypertension Arthritis Other No pertinent family history in first degree relatives Social History Social History Smoking packs per day: 1 Smoking cigarettes per day: 20.0 Smoking status: Current every day smoker Tobacco type: cigarettes Alcohol intake: current Substance use: never Living arrangements: with family Gender identity (if verbalized by the patient): Male Comments At the time of my signature, I reviewed and agree with the nursing past medical, surgical, social, and family history. There is no relevant family history pertinent to the patient complaint. Exam Const: General: cooperative, healthy appearing, comfortable, no acute distress, well developed, alert and well nourished Nutritional Appearance: well nourished and obese morbidly obese Orientation/consciousness: patient oriented x3 Limitations: no limitations HENMT: Head: normal to inspection Ears: hearing grossly normal bilaterally, external ears normal, TM's normal bilaterally, EAC's normal, mastoids normal and no periauricular adenopathy Face/Nose/Sinus: Normal external nose present, Normal nares present and No nasal discharge present Mouth: Yes Normal oral and palatal mucosa present, Yes lip normal, Yes tongue normal and Yes moist mucous membranes Throat: posterior oropharynx normal, uvula midline, postnasal drainage and no uvular edema Eyes: General: appearance normal, both eyes and all related structures Alignment and Position: alignment normal Neck: Neck: normal visual inspection, full ROM, no lymphadenopathy and no meningeal signs Chest: Chest palpation & inspection: normal inspection of the chest Resp: Effort & Inspection: normal respiratory effort and able to speak in complete sentences Auscultation: clear to auscultation bilaterally, no crackles, no rales, no rhonchi and no wheezes Cardio: Rate: regular rate GI: GI Palp: No abdominal tenderness and Yes Soft to palpation Auscultation: normal bowel sounds Skin: General skin exam: normal color and no rashes or lesions noted Neuro: General: patient oriented x3, gait normal, moves all extremities and no meningeal signs Cognition (Neuro): normal cognition Speech: normal speech Gait exam (Neuro): Normal gait present Extrem: General: normal to inspection, full ROM, capillary refill normal and normal gait Psych: Appearance: grossly normal and well kempt Mental Status: mental status grossly normal Speech and movement: Normal speech and movement present and Clear speech present Affect: normal affect Attitude: cooperative Course Course Level of Care: Express Care Visit Vital Signs Vital signs: Vital Signs Temperature 98.7 F 01/23/25 13:15 Pulse Rate 92 01/23/25 13:15 Respiratory Rate 20 01/23/25 13:15 Blood Pressure 126/85 01/23/25 13:15 Pulse Oximetry 96 01/23/25 13:15 Oxygen Delivery Room Air 01/23/25 13:15 Temperature 98.7 F 01/23/25 13:15 Pulse Rate 92 01/23/25 13:15 Respiratory Rate 20 01/23/25 13:15 Blood Pressure 126/85 01/23/25 13:15 Pulse Oximetry 96 01/23/25 13:15 Oxygen Delivery Room Air 01/23/25 13:15 Reviewed Medical Decision Making MDM Narrative Medical decision making narrative: Patient sitting comfortably in exam room. Nontoxic, vitals stable. Patient in no acute distress Patient presents for cough, vomiting diarrhea and subjective fevers. Denies any other symptoms. No acute findings other than postnasal drainage noted on exam. Denies abdominal pain. Denies chest pain. Denies shortness of breath. Patient requesting a work note Discussed doing flu or COVID at this time, patient declined Discharge instructions reviewed with patient, as well as provided in writing per nursing staff. The instructions also include specific and strict return/GO TO THE ER as well as f/u information. All questions have been answered, and the patient deny any further questions with discharge and discharge plan. Some parts of this dictation were generated by voice recognition software and may contain typographical and/or grammatical inaccuracies. Differential Diagnosis Differential Diagnosis: URI, gastroenteritis, viral infection Medical Records Medical records reviewed: Yes I reviewed the external patient's medical records. Vital Signs Vital Signs: Vital Signs Temperature 98.7 F 01/23/25 13:15 Pulse Rate 92 01/23/25 13:15 Respiratory Rate 20 01/23/25 13:15 Blood Pressure 126/85 01/23/25 13:15 Pulse Oximetry 96 01/23/25 13:15 Oxygen Delivery Room Air 01/23/25 13:15 Temperature 98.7 F 01/23/25 13:15 Pulse Rate 92 01/23/25 13:15 Respiratory Rate 20 01/23/25 13:15 Blood Pressure 126/85 01/23/25 13:15 Pulse Oximetry 96 01/23/25 13:15 Oxygen Delivery Room Air 01/23/25 13:15 Reviewed Lab Data Lab results reviewed: Yes I reviewed the patient's lab results. Labs: Reviewed Critical Care Time Critical Care Time Critical Care Time: No Discharge Plan Discharge Clinical Impression: Upper respiratory infection, viral, Post-nasal drainage Patient Disposition: Home, Self-Care Condition: Stable Instructions: Upper Respiratory Infection (DC), Postnasal Drip (DC) Additional Instructions: Your symptoms are likely due to a viral illness, which is not treated with antibiotics. Typically viral infections last 7-10 days, can linger for couple of weeks. It is very important to treat your symptoms. Drink plenty of water, Gatorade, Pedialyte, ice pops or Jell-O. -Alternate Tylenol and Motrin per package directions for fever or pain. You can alternate every 4 hours -Antihistamine medication such as Zyrtec/Claritin/Tessa during the day can help improve symptoms. -doing daily nasal irrigations can help relieve pressure your sinuses. Things like a Neti pot -Use Flonase twice a day for 5 days then daily to help reduce the inflammation and dry up your sinuses. -You can also use Mucinex. Be sure to drink plenty of water with this medication at least 8 ounces with every dose and it is important to drink 8 to 10 glasses of water per day. Water is a natural decongestant -Eat and drink things that are easy to swallow, like tea or soup, or popsicles. -Oral rinses such as: Salt water gargles and/or may use topical anesthetic (eg. Chloraseptic spray) or lozenges to relieve dryness or throat pain). -Frequent hand washing or hand sheet metal shop supervisor is one of the best ways to prevent spread of infection. -Using a vaporizer or humidifier at night will also help thin secretions and help with coughing up phlegm. -Follow up with primary care provider in 7-10 days if condition is not improving - For new or worsening symptoms go directly to the nearest ER Patient Language: Frisian Prescriptions: No Action Mounjaro 5 mg/0.5 mL pen injector 5 mg SUBCUT WEEKLY hydrochlorothiazide 25 mg tablet 25 mg PO DAILY Patient Comments: 12/13/23 Pt has not filled for 5 months, states he last took over a month ago bupropion HCl 150 mg tablet sustained-release 12 hr 150 mg PO BID Follow-up/Referrals: Daniella,MARILEE Persaud [Primary Care Provider] - 1 Week ([facility] care follow up ) Stand Alone Forms: Work/School Release IP Time of Disposition: 13:40
== END 2025-01-23 13:43 | disposition home or self-care (01) ==
PROVIDERS: Emergency Provider Nurse Practitioner; PCP Registered Nurse
DX: J06.9 Acute upper respiratory infection, unspecified (principal); R09.82 Postnasal drip; F17.210 Nicotine dependence, cigarettes, uncomplicated; I10 Essential (primary) hypertension; E66.9 Obesity, unspecified; Z68.43 Body mass index [BMI] 50.0-59.9, adult
CPT/HCPCS: 99211; 99212; G0463

== ENCOUNTER 2025-11-01 13:31 | Emergency (ER) | payer OTHER, SELFPAY ==
--- NOTE | 2025-11-01 13:34 | ED_ITS ---
HPI - URI/Sore Throat General Chief Complaint: Upper Respiratory Infection Stated Complaint: Congestion Time Seen by Provider: 11/01/25 13:34 Source: patient Mode of arrival: ambulatory Limitations: no limitations History of Present Illness HPI Narrative: Patient is a 45-year-old male who presents with 1 week of nasal congestion, cough and sore throat. Reports diarrhea x1 today. Denies any fever, chills, nausea, vomiting. Has been taking DayQuil and using nasal spray. Related Data Home Medications ?Medication ?Instructions ?Recorded ?Confirmed ?Last Taken ?Type hydrochlorothiazide 25 mg tablet 25 mg PO DAILY 01/23/25 Unknown History tirzepatide 12.5 mg/0.5 mL mg subcut 11/01/25 Unknown History subcutaneous pen injector (Mounjaro) Allergies Allergy/AdvReac Type Severity Reaction Status Date / Time No Known Allergies Allergy Verified 11/01/25 13:48 Review of Systems Review of Systems: All systems reviewed & are unremarkable except as noted in HPI and below Constitutional: Constitutional: Denies chills, Denies fatigue, Denies fever(s), Denies headache(s), Denies malaise and Denies weakness Eyes: Eyes: Denies blurry vision, Denies itchy eyes and Denies loss of vision ENT: Denies otalgia, Denies headache(s), Reports nasal congestion, Denies sinus pain and Reports sore throat Cardiovascular: Cardiovascular: Denies chest pain, Denies irregular heart rhythm and Denies dyspnea Respiratory: Respiratory: Reports cough and Denies dyspnea Gastrointestinal: Gastrointestinal: Denies abdominal pain, Denies diarrhea, Denies nausea and Denies vomiting Musculoskeletal: Musculoskeletal: Denies back pain, Denies myalgias and Denies arthralgias Integumentary/Breasts: Skin/Breast: Denies pruritus and Denies rash Neurologic: Denies headache(s), Denies loss of vision and Denies weakness Psychiatric: Psychiatric: Reports no additional psychiatric complaints Endocrine: Endocrine: Denies fatigue Allergic/Immunologic: Allergic/Immunologic: Denies itchy eyes PMFSH Past Medical History Medical History Hypertension Tobacco abuse Seasonal allergies Fracture of left ankle Back pain Strep pharyngitis Obese Surgical History Surgical History No pertinent past surgical history Family History Family History Father Diabetes mellitus Hypertension Lung cancer Arthritis Mother Hypertension Arthritis Sibling Hypertension Arthritis Other No pertinent family history in first degree relatives Social History Social History Smoking packs per day: 1 Smoking cigarettes per day: 20.0 Smoking status: Current every day smoker Tobacco type: cigarettes Alcohol intake: current Substance use: never Living arrangements: with family Gender identity (if verbalized by the patient): Male Comments At time of signature, agree with nursing past medical, surgical, social and family history. There is no relevant family history pertinent to the presenting complaint. Exam Const: General: cooperative, healthy appearing, comfortable, no acute distress and well nourished Nutritional Appearance: well nourished Orientation/consciousness: patient oriented x3 Limitations: no limitations HENMT: Head: normal to inspection, normocephalic and atraumatic Ears: hearing grossly normal bilaterally, external ears normal, TM's normal bilateral ly, EAC's normal and no periauricular adenopathy Face/Nose/Sinus: Normal external nose present, Abnormal mucous membranes and turbinates present erythematous bilateral and diffuse, normal facial exam, sinuses nontender and face symmetric Face and sinus: normal facial exam, sinuses nontender and face symmetric Mouth: Yes Normal oral and palatal mucosa present, Yes lip normal, Yes tongue normal, Yes Normal salivary glands and ducts present, Yes oropharynx normal and Yes moist mucous membranes Teeth and gingiva: dentition normal Throat: uvula midline, abnormal tonsil bilateral erythema and posterior oropharynx abnormal erythema Eyes: General: appearance normal, both eyes and all related structures Alignment and Position: alignment normal and position normal Periorbital: periorbital findings normal Eyelids: eyelids normal Pupils: Equal, round and reactive pupils present Neck: Neck: normal visual inspection, full ROM, no lymphadenopathy and supple Chest: Chest palpation & inspection: normal inspection of the chest and normal palpation of entire chest wall Resp: Effort & Inspection: normal respiratory effort and able to speak in complete sentences Auscultation: clear to auscultation bilaterally, no crackles, no rales, no rhonchi and no wheezes Cardio: Rate: regular rate Rhythm: regular rhythm Heart sounds: S1 normal heart sound present and S2 normal heart sound present GI: Inspection: normal to inspection Skin: General skin exam: normal color and no rashes or lesions noted Neuro: General: patient oriented x3 and moves all extremities Cranial nerves: Yes Equal, round and reactive pupils present Speech: normal speech Gait exam (Neuro): Normal gait present Extrem: General: normal to inspection, full ROM and no edema Psych: Appearance: grossly normal and well kempt Mental Status: mental status grossly normal Speech and movement: Normal speech and movement present Affect: normal affect Attitude: cooperative Thought process: Normal thought process present Course Course Emergency Course: Patient is aware of diagnosis, understands and agrees to treatment plan. Anticipatory guidance given. Patient agrees to follow-up as directed and is aware of reasons to seek care at the emergency department. Portions of this record may have been created with voice recognition software Level of Care: Express Care Visit Vital Signs Vital signs: Vital Signs Temperature 36.4 C 11/01/25 13:50 Pulse Rate 72 11/01/25 13:50 Respiratory Rate 20 11/01/25 13:50 Blood Pressure 134/77 11/01/25 13:50 Pulse Oximetry 96 11/01/25 13:50 Oxygen Delivery Room Air 11/01/25 13:50 Temperature 36.4 C 11/01/25 13:50 Pulse Rate 72 11/01/25 13:50 Respiratory Rate 20 11/01/25 13:50 Blood Pressure 134/77 11/01/25 13:50 Pulse Oximetry 96 11/01/25 13:50 Oxygen Delivery Room Air 11/01/25 13:50 [facility] Narrative Medical decision making narrative: Patient positive for strep throat. Will treat with amoxicillin and provide Education to prevent reinfection. Pt well hydrated appearing, in no respiratory distress, hemodynamically stable. Recommend supportive care. The patient is stable at time of discharge the clinical impression was discussed and the patient was given the opportunity to ask questions, which were addressed as completely as possible given the information available at present. Anticipatory guidance and return to care precautions were discussed and the importance of primary care follow-up was stressed and encouraged. The patient voiced understanding of the plan, indications to return, and the need for follow-up. Exam findings show no acute concerns or changes Patient is appropriate for outpatient treatment and follow-up. Differential Diagnosis Differential Diagnosis: Differential diagnosis considered: Perez virus, strep pharyngitis, allergic rhinitis, upper respiratory tract infection, sinusitis, rhinosinusitis, nasopharyngitis. viral pharyngitis, otitis media, otitis externa, otitis effusion, foreign body, cerumen impaction, viral syndrome, and influenza. Medical Records I have reviewed the following patient records and this information was taken into consideration when formulating the assessment and plan.: previous clinic visits Lab Data MDM Lab Attestation statement: I personally reviewed the patient's lab results. Labs: Lab Results 11/01/25 Range/Units 13:46 POC Grp A Strep Screen Positive (Negative) Discharge Plan Discharge Clinical Impression: Strep throat Patient Disposition: Home Condition: Stable Instructions: Strep Throat (ED) Additional Instructions: Your rapid strep swab was positive today at [facility]. After 24 hours on antibiotics throw tooth brush away and start using a new one. Wash your sheets and cup/water bottle that is used daily. Do not share drinks. Take Motrin alternating with Tylenol for pain and fever alternating every 3 hours. 8 AM: Tylenol 11 AM: Ibuprofen 2 PM: Tylenol 5 PM: Ibuprofen 8 PM: Tylenol 11 PM: Ibuprofen 2 AM: Tylenol 5 AM: Ibuprofen Increase fluids, avoid caffeine. Other symptomatic treatments include: -Antihistamine medication such as Benadryl at night and Zyrtec/Claritin/Tessa during the day can help improve symptoms. -Use Flonase twice a day for 5 days then daily to help reduce the inflammation and dry up your sinuses. -You can also use Sudafed or Mucinex. Be sure to drink plenty of water with these medications at least 8 ounces with every dose and it is important to drink 8 to 10 glasses of water per day. Water is a natural decongestant -Eat and drink things that are easy to swallow, like tea or soup, or popsicles. -Oral rinses such as: Salt water gargles and/or may use topical anesthetic (eg. Chloraseptic spray) or lozenges to relieve dryness or throat pain). -Frequent hand washing or hand director [employer] is one of the best ways to prevent spread of infection. -Using a vaporizer or humidifier at night will also help thin secretions and help with coughing up phlegm. -Follow up with primary care provider in 3-5 days if condition is not improving - For new or worsening symptoms go directly to the nearest ER Patient Language: Sami Prescriptions: New amoxicillin 500 mg capsule 500 mg PO BID 10 Days Qty: 20 0RF No Action hydrochlorothiazide 25 mg tablet 25 mg PO DAILY Mounjaro 12.5 mg/0.5 mL pen injector SUBCUT Follow-up/Referrals: Daniella,MARILEE Persaud [Primary Care Provider] - 3 Days Stand Alone Forms: Work/School Release IP Time of Disposition: 14:17
[2025-11-01 13:50] VITALS: BP 134/77; PULSE 72; RESP 20; TEMP 36.4; O2SAT 96
[2025-11-01 13:59] LABS: EDSTREPNEGPOS1 Positive (Negative)
== END 2025-11-01 14:21 | disposition home or self-care (01) ==
PROVIDERS: Emergency Provider Nurse Practitioner Family; PCP Registered Nurse
DX: J02.0 Streptococcal pharyngitis (principal); F17.210 Nicotine dependence, cigarettes, uncomplicated; I10 Essential (primary) hypertension; E66.9 Obesity, unspecified; Z68.43 Body mass index [BMI] 50.0-59.9, adult
CPT/HCPCS: 87880; 99213; G0463